=== PATIENT | male | born 1985 | race Caucasian/White ===

== ENCOUNTER 2021-01-18 07:31 | Day surgery (SDC) | payer BC ==
[2021-01-12 15:16] LABS: Basophils % 0.9 % (0-1.3); Hematocrit 42.8 % (39.6-49.0); Lymphocytes % 30.7 % (15.3-44.8); MPV 10.1 fL (7.6-11.3); RBC Red Blood Cell Count 4.86 M/uL (4.33-5.43)
[2021-01-18] MEDS ORDERED: Ringers Lactate 1,000 ML IV ONE ×2 (08:12→10:19)
[2021-01-18] MEDS ORDERED: MIDAZOLAM HCL 2 MG/2 ML INJ ONE (08:30)
[2021-01-18] MEDS ORDERED: propofoL 200 MG/20 ML VIAL IV ONE ×2 (08:30→09:30)
[2021-01-18] MEDS ORDERED: FENTANYL CITR 100 MCG/2 ML ONE ×3 (08:30→10:22)
[2021-01-18] MEDS ORDERED: ONDANSETRON 4 MG/2 ML VIAL ONE (08:31)
[2021-01-18] MEDS ORDERED: GLYCOPYRROLATE 0.2 MG/ML SYR ONE (08:32)
[2021-01-18] MEDS ORDERED: ROCURONIUM 50 MG/5 ML VIAL IV ONE (08:32)
[2021-01-18] MEDS ORDERED: NEOSTIGMINE 1 MG/ML -5 ML ONE (08:32)
[2021-01-18] MEDS ORDERED: EPHEDRINE SULF 50 MG/ML VIAL ONE ×2 (08:33→09:57)
[2021-01-18] MEDS ORDERED: dexAMETHasone 10 MG/ML VIAL ONE (09:12)
[2021-01-18] MEDS ORDERED: KETOROLAC 30 MG/ML INJ ONE (09:13)
[2021-01-18] MEDS: CEFAZOLIN/SWI 1gm 1 GM/10 ML SYR ONE ×2 (09:25→09:27)
[2021-01-18] MEDS ORDERED: SUCCINYLCHOLINE 20 MG/ML (10 ML) IV ONE (09:28)
[2021-01-18] MEDS ORDERED: LIDOCAINE 2% MPF 5 ML VIAL ONE (09:29)
[2021-01-18] MEDS ORDERED: ATROPINE SULF 1 MG/10 ML SYR IV ONE (10:00)
[2021-01-18] MEDS ORDERED: LABETALOL 20 MG/4ML SYRINGE IV ONE (10:24)
[2021-01-18] MEDS ORDERED: HYDROMORPHONE HCL 2 MG/ML inj ONE (11:19)
[2021-01-18] MEDS ORDERED: HYDROCODONE/APAP 7.5/325 MG TAB ONE (12:24)
[2021-01-18 12:27] VITALS: BP 142/83; TEMP 98; O2SAT 92
--- NOTE | 2021-01-18 13:40 | OP ---
Date of Procedure: 01/18/2021 Surgeon: Ramesh Cifuentes MD [employer] Cann[employer]er: None. Preoperative Diagnosis: Incarcerated umbilical hernia. Postoperative Diagnosis: Incarcerated umbilical hernia. Procedure: Laparoscopic repair of incarcerated umbilical hernia. Estimated Blood Loss: Minimal. Specimen: Hernia sac and omentum partial. Findings: As above. Anesthesia: General. Complications: None. Disposition: The patient tolerated procedure in stable condition, taken to Recovery in good general condition. Operative Note: The patient was brought to the OR and placed in supine position. General anesthesia was begun. The patient was prepped and draped in the usual sterile fashion. Marcaine 0.5% was infi ltrated locally. A 15-blade was used to make a left upper quadrant 1.5 cm incision. Subcutaneous ti ssue was divided. Fascia was identified and divided. #1 Vicryl stay suture was placed in the fascia and then peritoneal cavity was entered with sharp and blunt dissection. A 12 mm trocar was placed i nto the peritoneal cavity under direct vision. Pneumoperitoneum established and 5 mm trocar placed in the left lower quadrant. Laparoscopy revealed incarcerated omentum into the umbilicus just below it and there was a large amount of omentum present there approximately size of a golf ball. Then, a 4 c m midline incision was made just below the umbilicus. Subcutaneous tissue was divided. Hernia sac a nd contents were identified and freed from the fascia with sharp and blunt dissection. Tip of the om entum within the sac was excised as well. Clamped with Tiana clamps and tied off with 2-0 silk and d ivided and sent to Pathology, the sac as well as the omentum. Then, the remainder of the omentum was reduced back into the peritoneal cavity and there was approximately a 4 cm defect remained. A runni ng #1 PDS suture was used to close the defect primarily and then pneumoperitoneum was reestablished. Then, a Bard balloon system mesh circular in nature was used in the standard fashion and deployed th rough the umbilicus and complete coverage of the hernia sac was accomplished with at least 3 cm cover age on every side and then AbsorbaTack was used to secure the mesh to the peritoneal surface in the s tandard fashion. Complete coverage was accomplished. No evidence of bleeding or bowel injury was se en. The disposal components of the mesh were removed and accounted for and subsequently all trocars were removed under direct vision. Stay sutures were tied to each other to reapproximate fascial defe ct. Subcutaneous wounds were irrigated. Bleeding was controlled with cautery. A 3-0 chromic used to approximate subcutaneous tissues. [place] were used to close skin. Sterile dressing was applied. The patient was awakened and taken to Recovery in good general condition. Discharge Note: The patient will go to day surgery and home when stable. Disposition: Home. Condition: Stable. Discharge Instructions: Resume home meds and diet. Activity as tolerated. No heavy lifting. Remov e outer dressing in 2 days. Shower. Keep wound clean and dry. Follow up in my office in a week. C all for appointment. Tylenol No.3 one tablet p.o. q.4 p.r.n. pain. Incentive spirometry as ordered. Abdominal binder. /MODL Voice ID: [id number] Report ID: [id number]
== END 2021-01-18 12:45 | disposition home or self-care (01) ==
LOC: OR 07:31
PROVIDERS: ATTEND Surgery
PROC: 0WQF4ZZ Repair Abdominal Wall, Percutaneous Endoscopic Approach (ICD-10-PCS; principal; 2021-01-18 08:30)
DX: K42.0 Umbilical hernia with obstruction, without gangrene (principal); Z20.822 Contact with and (suspected) exposure to COVID-19
CPT/HCPCS: 36415; 85025; 88302; C1781; J0330; J0690; J1100; J1170; J2250; J2405; J2704; J2710; J3010; J7120; U0002